=== PATIENT | male | born 1995 | race Caucasian/White ===

== ENCOUNTER 2017-10-20 15:30 | Emergency (ER) | payer BC ==
[2017-10-20 15:50] VITALS: BP 129/68
--- NOTE | 2017-10-20 16:03 | UC ---
Complaint Male HPI - HPI Summary HPI Summary: LEFT TESTICULAR PAIN X MORE THAN 5 YEARS PAIN COMES AND GOES, RADIATES TO THE LEFT LOWER ABD + SWELLING OF THE LEFT TESTICLE , NO REDNESS, NO INJURY NO HX OF STDS, NO DYSURIA - History of Current Complaint Chief Complaint: UCAbdominalPain Stated Complaint: ABDOMINAL PAIN Time Seen by Provider: 10/20/17 15:40 Hx Obtained From: Patient Onset/Duration: Still Present, Other - MORE THAN 5 YEARS Timing: Intermittent, Lasting Days Severity Initially: Moderate Severity Currently: Moderate Location: Testicle - LEFT Character: Constant Pressure Aggravating Factor(s): Straining, Palpation Alleviating Factor(s): Nothing Associated Signs And Symptoms: Negative: Diaphoresis, Back Pain, Fever, Hematuria, Dysuria, Constipation, Blood in Stool, Rectal Pain, Appetite, Nausea , Vomiting(# Of Episodes =), Penile Swelling, Penile Discharge - Allergies/Home Medications Allergies/Adverse Reactions: Allergies Allergy/AdvReac Type Severity Reaction Status Date / Time No Known Allergies Allergy Verified 10/20/17 15:42 Home Medications: Home Medications NK [No Home Medications Reported] 10/20/17 [History Confirmed 10/20/17] PMH/Surg Hx/FS Hx/Imm Hx Previously Healthy: Yes - Surgical History Surgical History: Yes Surgery Procedure, Year, and Place: KNEE SURGERY - Family History Known Family History: Negative: Cardiac Disease, Hypertension, Diabetes - Social History Alcohol Use: Occasionally Substance Use Type: None Smoking Status (MU): Never Smoked Tobacco - Immunization History Most Recent Influenza Vaccination: NO Review of Systems Constitutional: Negative Skin: Negative Eyes: Negative ENT: Negative Is Patient Immunocompromised?: No All Other Systems Reviewed And Are Negative: Yes Physical Exam Triage Information Reviewed: Yes Appearance: Well-Appearing, No Pain Distress, Well-Nourished Vital Signs: Initial Vital Signs Temp 98.3 F 10/20/17 15:43 Pulse 51 10/20/17 15:43 Resp 16 10/20/17 15:43 BP 129/68 10/20/17 15:43 Pulse Ox 99 10/20/17 15:43 Vital Signs Reviewed: Yes Eye Exam: Normal Eyes: Positive: Conjunctiva Clear ENT: Positive: Normal ENT inspection, Hearing grossly normal, Pharynx normal Neck: Positive: Supple, Nontender, No Lymphadenopathy Respiratory: Positive: Chest non-tender, Lungs clear, Normal breath sounds Cardiovascular: Positive: RRR, No Murmur, Pulses Normal Abdomen Description: Positive: Nontender, No Organomegaly, Soft. Negative: CVA Tenderness (R), CVA Tenderness (L), Distended, Guarding Bowel Sounds: Positive: Present Musculoskeletal Exam: Normal Skin Exam: Normal UC Physical Exam Vital Signs On Initial Exam: Initial Vitals Temp Pulse Resp BP Pulse Ox 98.3 F 51 16 129/68 99 10/20/17 15:43 10/20/17 15:43 10/20/17 15:43 10/20/17 15:43 10/20/17 15:43 - Genitalia Exam Male Genitalia: Circumcised Male Genitalia Cont.: Left: Testicles Tender, Bilateral: Testicles Descended, Testicles w/o Swelling, Scrotum Without Erythema Complaint Male Course/Dx - Differential Dx/Diagnosis Provider Diagnoses: LEFT TESTICLAR PAIN Discharge - Discharge Plan Condition: Stable Disposition: HOME Patient Education Materials: Testicle Pain (ED) Referrals: Lamar Jaquez MD [Medical Doctor] - Non Staff,Doctor [Primary Care Provider] - Mamadou Spain MD [Medical Doctor] - As Soon As Possible Additional Instructions: LEFT TESTICULAR PAIN FOR MANY YEARS WILL MAKE REFERRAL TO UROLOGY FOR EVAL AND TX
== END 2017-10-20 16:04 | disposition home or self-care (01) ==
LOC: UCCORT 15:30
DX: N50.812 Left testicular pain (principal); Z72.89 Other problems related to lifestyle
CPT/HCPCS: 99211; G0463